=== PATIENT | female | born 1985 | race Asian ===

== ENCOUNTER → 2016-04-07 | Outpatient (CLI) | payer BC | LOC: COL.RAD 10:30 | DX: N70.91 Salpingitis, unspecified (principal); Q51.818 Other congenital malformations of uterus | CPT/HCPCS: Q9967 ==

== ENCOUNTER → 2016-07-14 | Outpatient (CLI) | payer BC | LOC: COL.RAD 07:11 | DX: Z13.89 Encounter for screening for other disorder (principal) ==